=== PATIENT | female | born 1965 | race African-American/Black ===

== ENCOUNTER 2017-09-15 11:18 | Emergency (ER) | payer MEDICAID ==
[~2017-09-15] VITALS: Ht 165.1 cm; Wt 146.0 kg
[2017-09-15 11:22] VITALS: BP 149/79
[2017-09-15] MEDS ORDERED: ACETAMINOPHEN 325MG TABLET PO ONE (12:00)
== END 2017-09-15 18:38 | disposition home or self-care (01) ==
LOC: ER 11:18
DX: M79.641 Pain in right hand (principal); M25.531 Pain in right wrist; S80.01XA Contusion of right knee, initial encounter; S80.02XA Contusion of left knee, initial encounter; S90.32XA Contusion of left foot, initial encounter; W18.2XXA Fall in (into) shower or empty bathtub, initial encounter; Y93.89 Activity, other specified; W01.0XXA Fall on same level from slipping, tripping and stumbling without subsequent striking against object, initial encounter; Y92.59 Other trade areas as the place of occurrence of the external cause
CPT/HCPCS: 29125; 73110; 73130; 73560; 73630; 99284